=== PATIENT | female | born 1955 | race Caucasian/White ===

== ENCOUNTER 2016-05-20 06:15 | Emergency (ER) | payer OTHER, BC ==
--- NOTE | 2016-05-20 06:27 | EDM.PDOC ---
ED HPI Trauma - General Chief Complaint: Upper Extremity Injury/Pain Stated Complaint: INJURED LEFT SHOULDER Time Seen by Provider: 05/20/16 06:19 - History of Present Illness INITIAL COMMENTS - FREE TEXT/NARRATIVE: 60-year-old female presents emergency room with left shoulder pain. Shortly before arrival the patient was walking into the hospital getting ready to clock in. She got her feet tangled up in the area rugs, and fell forward. She had a backpack over her right shoulder to the front of her. She landed on both outstretched arms and rolled onto her left side hitting her shoulder fairly hard. She has significant pain in the shoulder area and numbness going down her arm. Patient denies any prior injuries to the shoulder. Patient denies any other injuries associated with this fall. Allergies/ADRs: Allergies sulfamethoxazole [From Bactrim] Allergy (Verified 05/20/16 06:31) Hives trimethoprim [From Bactrim] Allergy (Verified 05/20/16 06:31) Hives Home Medications: Ambulatory Orders Hydrocodone/Acetaminophen [[place] 5-325 Tablet] 1 - 2 each PO Q6H PRN #20 tablet 05/20/16 Review of Systems - Review of Systems Review Of Systems: See Below Constitutional: Reports: no symptoms Respiratory: Reports: no symptoms Cardiovascular: Reports: no symptoms GI/Abdominal: Reports: No symptoms Trauma Exam - Physical Exam Exam: See Below Exam Limited By: No limitations General Appearance: Reports: alert, no apparent distress Respiratory Exam: Reports: no respiratory distress, lungs clear, normal breath sounds Cardiovascular: Reports: regular rate, rhythm, no edema, no murmur Extremities: Reports: other (examination of the left upper extremity is severely limited by decreased range of motion and pain at the shoulder. The patient can flex and extend her elbow without difficulty flex and extend her wrist without difficulty, she can move her fingers. She has sensation of tingling and numbness in the extremity this doesn't isolate any specific dermatome however light touch sensation is intact. Vascular status is normal.) Course - Vital Signs Last Recorded V/S: Last Vital Signs Temp 36.5 C 05/20/16 06:15 Pulse 95 05/20/16 06:15 Resp 16 05/20/16 06:15 BP 132/115 H 05/20/16 06:15 Pulse Ox 96 05/20/16 06:15 - Orders/Labs/Meds Orders: Active Orders 24 hr Category Date Time Status Humerus Lt [CR] Stat Exams 05/20/16 06:27 Taken Shoulder Comp Lt [CR] Stat Exams 05/20/16 06:27 Taken Durable Medical Equipment for Discharge [DME for Oth 05/20/16 07:10 Ordered Discharge] [COMM] Stat - Re-Assessments/Exams Free Text/Narrative Re-Assessment/Exam: 05/20/16 07:37 x-ray examination of the shoulder and humerus reveal a nondisplaced humeral head fracture. There is an area of concern on the scapula but there is no clear cortical disruption. The case was discussed with Dr. Deluna who recommends placing the patient in a shoulder immobilizer and he will see her in the office tomorrow morning. If he has any concerns over the scapula he will pursue further images at that point. Departure - Departure Time of Disposition: 07:19 Disposition: Home, Self-Care 01 Clinical Impression: Fracture of humeral head, left, closed Prescriptions: Hydrocodone/Acetaminophen [[place] 5-325 Tablet] 1 - 2 each PO Q6H PRN #20 tablet PRN Reason: Pain Referrals: Mena Mcfarlane PA [Primary Care Provider] - Dale Deluna MD [Physician] - Additional Instructions: Return to emergency room if any questions or problems. Followup with Dr. Deluna tomorrow morning call this morning for an appointment. use ibuprofen as needed for discomfort take with meals. You have been given a prescription for [place] this is a pain medication with hydrocodone. Take one or 2 every 6 hours as needed for pain. Allow 12 hours after using this medication before driving or returning to work. Regular use this medication can cause constipation. Push fluids and use a stool softener if needed. - My Orders Last 24 Hours: My Active Orders 05/20/16 06:27 Humerus Lt [CR] Stat Shoulder Comp Lt [CR] Stat 05/20/16 07:10 Durable Medical Equipment for Discharge [DME for Discharge] [COMM] Stat - Assessment/Plan Last 24 Hours: My Active Orders 05/20/16 06:27 Humerus Lt [CR] Stat Shoulder Comp Lt [CR] Stat 05/20/16 07:10 Durable Medical Equipment for Discharge [DME for Discharge] [COMM] Stat
[2016-05-20 06:31] VITALS: BP 132/115
--- NOTE | 2016-05-20 10:00 | CR ---
Left shoulder: Three views of the left shoulder were obtained. Fracture identified within the base of the greater tuberosity. No additional fracture is appreciated. Acromioclavicular joint appears unremarkable. Impression: 1. Nondisplaced fracture involving the base of the greater tuberosity. Diagnostic code #3
--- NOTE | 2016-05-20 10:01 | CR ---
Left humerus: Two views of the left humerus were obtained. Study correlated to shoulder exam performed on the same day. Comparison: No previous study is available. Findings: Fracture is again noted within the base of the greater tuberosity. No additional fracture or other abnormality is seen within the left humerus. Impression: 1. Proximal humeral fracture within the greater tuberosity. 2. Left humerus exam is otherwise unremarkable. Diagnostic code #3
== END 2016-05-20 07:35 | disposition home or self-care (01) ==
LOC: JD.ED 06:15
DX: S42.292A Other displaced fracture of upper end of left humerus, initial encounter for closed fracture (principal); Z88.1 Allergy status to other antibiotic agents; W01.0XXA Fall on same level from slipping, tripping and stumbling without subsequent striking against object, initial encounter
CPT/HCPCS: 73030-26-LT; 73030-LT; 73060-26-LT; 73060-LT; 99283; 99284

== ENCOUNTER 2017-07-27 09:54 | Day surgery (SDC) | payer BC, OTHER ==
[~2017-07-27 09:54] MED LIST: Lactated Ringers 1,000 ML IV SCH; Lidocaine 1%/Sod Bicarbonate in NS 8.4% 1 ML Syringe IDERM PRN; Sodium Chloride 0.9% 10 ML Syringe FLUSH PRN
--- NOTE | 2017-07-27 10:32 | PCM.PREANE ---
Preanesthetic Assessment - Procedure Proposed Procedure: screening colonoscopy - Anesthesia/Transfusion/Family Hx Anesthesia History: Prior Anesthesia Reaction Type of Anesthesia Reaction: Excessive Nausea/Vomiting Family History of Anesthesia Reaction: No Transfusion History: No Prior Transfusion(s) - Review of Systems General: No Symptoms Pulmonary: No Symptoms Cardiovascular: No Symptoms Gastrointestinal: No Symptoms Neurological: No Symptoms Other: Reports: Sinus Problem (hayfever) - Physical Assessment NPO Status Date: 07/26/17 NPO Status Time: 21:30 Pulse: 83 O2 Sat by Pulse Oximetry: 95 Respiratory Rate: 20 Blood Pressure: 162/98 Temperature: 99.1 F Height: 5 ft 4 in Weight: 87 kg ASA Class: 2 Mental Status: Alert & Oriented x3 Airway Class: Mallampati = 1 Dentition: Reports: Normal Dentition Thyro-Mental Finger Breadths: 3 Mouth Opening Finger Breadths: 3 ROM/Head Extension: Full Lungs: Clear to Auscultation, Normal Respiratory Effort Cardiovascular: Regular Rate, Regular Rhythm - Allergies Allergies/Adverse Reactions: Allergies Allergy/AdvReac Type Severity Reaction Status Date / Time sulfamethoxazole Allergy Hives Verified 07/26/17 16:39 [From Bactrim] trimethoprim [From Bactrim] Allergy Hives Verified 07/26/17 16:39 hydrochlorothiazide AdvReac Muscle Verified 07/27/17 08:10 Aches hydrocodone AdvReac Nausea Verified 07/27/17 08:10 ketorolac [From Toradol] AdvReac Tachycardia Verified 07/27/17 08:10 - Blood Blood Available: No - Acknowledgements Anesthesia Type Planned: MAC Pt an Appropriate Candidate for the Planned Anesthesia: Yes Alternatives and Risks of Anesthesia Discussed w Pt/Guardian: Yes Pt/Guardian Understands and Agrees with Anesthesia Plan: Yes PreAnesthesia Questionnaire HEENT History: Reports: Allergic Rhinitis, Hard of Hearing, Other (See Below) Other HEENT History: ear itching, bilateral hearing loss, has hearing aides, has glasses Cardiovascular History: Reports: High Cholesterol, Hypertension, Other (See Below) Other Cardiovascular History: edema Respiratory History: Reports: Sleep Apnea, Other (See Below) Other Respiratory History: URI, being tested for sleep apnea in near future Gastrointestinal History: Reports: Colon Polyp Genitourinary History: Reports: Other (See Below) Other Genitourinary History: breast nodule, atrohpic vaginitis, pelvic floor repair with mesh 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 left secondary adhesive capsulitis, left hand finger strain, right knee strain Neurological History: Reports: Headaches, Chronic, Other (See Below) Other Neuro History: head injury, head pain, motion sickness, fatigue Psychiatric History: Reports: None Endocrine/Metabolic History: Reports: Osteopenia Other Hematologic History: leukopenia Immunologic History: Reports: None Oncologic (Cancer) History: Reports: None Dermatologic History: Reports: None - Past Surgical History Head Surgeries/Procedures: Reports: None HEENT Surgical History: Reports: None Cardiovascular Surgical History: Reports: None Respiratory Surgical History: Reports: None GI Surgical History: Reports: Colonoscopy Female Surgical History: Reports: None Male Surgical History: Reports: None Musculoskeletal Surgical History: Reports: Arthroscopic Knee Oncologic Surgical History: Reports: None - SUBSTANCE USE Smoking Status *Q: Never Smoker Tobacco Use Within Last Twelve Months: No Second Hand Smoke Exposure: No Days Per Week of Alcohol Use: 0 Recreational Drug Use History: No - HOME MEDS Home Medications: Home Meds Ascorbic Acid [Vitamin C] 500 mg PO DAILY 07/26/17 [History] Aspirin/Acetaminophen/Caffeine [Migraine Formula Caplet] 1 - 2 tab PO Q6H PRN [History] C Hyaluronic Acid 1 dose VAG ASDIRECTED 07/26/17 [History] Calcium Carbonate/Vitamin D3 [Caltrate 600 + D Soft Chew Tab] 1 tab PO DAILY 11/05 [History] Fish Oil/[place]-3 Fatty Acids [Fish Oil 1,000 MG] 1 gm PO DAILY 07/26/17 [History ] Gluc 2KCl/Chondr/Doug Hy/Hy Ac [Glucosamine & Chondroitin Cap] 1 cap PO DAILY [History] Magnesium 30 mg PO DAILY 07/26/17 [History] Multivitamin [Zoo Chews] 1 tab PO DAILY 07/26/17 [History] Prednicarbate 1 dose TOP BID 07/26/17 [History] Rosuvastatin [Crestor] 5 mg PO DAILY 07/26/17 [History] Ubidecarenone [Coq-10] 150 mg PO DAILY 07/26/17 [History] - CURRENT (IN HOUSE) MEDS Current Meds: Current Medications Lactated Ringer's (Ringers, Lactated) 1,000 mls @ 125 mls/hr IV ASDIRECTED JAKI Stop: 07/27/17 23:00 Lidocaine/Sodium Bicarbonate (Buffered Lidocaine 1% In Ns 8.4%) 0.25 ml IDERM ONETIME PRN PRN Reason: Prior to IV Start Stop: 07/27/17 18:00 Sodium Chloride (Saline Flush) 10 ml FLUSH ASDIRECTED PRN PRN Reason: Keep Vein Open Stop: 07/27/17 18:00
[2017-07-27] MEDS ORDERED: Propofol 200 MG/20 ML SDV ONE ×2 (10:48)
[2017-07-27] MEDS ORDERED: Midazolam 1 MG/ML 2 ML SDV ONE (11:00)
[2017-07-27] MEDS ORDERED: Ondansetron 4 MG/2 ML SDV ONE (11:16)
--- NOTE | 2017-07-27 11:33 | PCM.OPNOTE ---
- General Post-Op/Procedure Note Date of Surgery/Procedure: 07/27/17 Operative Procedure(s): Colonoscopy Findings: 1. internal hemorrhoids 2. sigmoid diverticulosis Pre Op Diagnosis: History of colon polyp Post-Op Diagnosis: 1. Internal hemorrhoids. 2. Sigmoid diverticulosis Anesthesia Technique: MAC, Moderate Sedation Primary Surgeon: Omid Leo Pathology: None EBL in mLs: 0 Complications: None Condition: Good Free Text/Narrative:: After adequate IV sedation and analgesia was obtained with monitoring the patient was placed on her left side. Perianal inspection revealed the internal hemorrhoids which were uncomplicated. A lubricated colonoscope was inserted into the rectum and advanced to the cecum without difficulty. The bowel preparation was excellent. The cecum right colon transverse and descending colons were endoscopically normal and had no mass lesions nor inflammatory changes. The sigmoid had a few scattered uncomplicated diverticuli. There were no polyps in this area either. The rectum in the retroflexed view was remarkable for the internal hemorrhoids. Upholstery Cutter photographs were taken for the patient and for the medical record.
--- NOTE | 2017-07-27 11:34 | PCM48HPAN ---
Post Anesthesia Note - EVALUATION WITHIN 48HRS OF ANESTHETIC Vital Signs in Normal Range: Yes Patient Participated in Evaluation: Yes Respiratory Function Stable: Yes Airway Patent: Yes Cardiovascular Function Stable: Yes Hydration Status Stable: Yes Pain Control Satisfactory: Yes Nausea and Vomiting Control Satisfactory: Yes Mental Status Recovered: Yes Pulse Rate: 78 SaO2: 94 Resp Rate: 16 Temperature: 36.5 C Blood Pressure: 131/97
[2017-07-27 13:22] VITALS: BP 150/91
== END 2017-07-27 12:55 | disposition home or self-care (01) ==
LOC: JD.SDS 09:54
PROVIDERS: ATTEND Surgery
DX: K64.8 Other hemorrhoids (principal); K57.30 Diverticulosis of large intestine without perforation or abscess without bleeding; Z86.010 Personal history of colon polyps; Z80.0 Family history of malignant neoplasm of digestive organs; M19.019 Primary osteoarthritis, unspecified shoulder; E78.5 Hyperlipidemia, unspecified; M85.80 Other specified disorders of bone density and structure, unspecified site; G47.30 Sleep apnea, unspecified; Z88.1 Allergy status to other antibiotic agents; Z88.5 Allergy status to narcotic agent; Z88.8 Allergy status to other drugs, medicaments and biological substances; Z79.899 Other long term (current) drug therapy; Z98.890 Other specified postprocedural states
CPT/HCPCS: 45378; J2250; J2405; J7120; J2704

== ENCOUNTER 2017-09-10 07:59 | Emergency (ER) | payer OTHER, BC ==
[2017-09-10 08:22] VITALS: BP 146/96
--- NOTE | 2017-09-10 08:47 | EDM.PDOC ---
ED HPI GENERAL MEDICAL PROBLEM - General Chief Complaint: Laceration Stated Complaint: EMPLOYEE INJURY Time Seen by Provider: 09/10/17 08:19 Source of Information: Reports: Patient History Limitations: Reports: No Limitations - History of Present Illness INITIAL COMMENTS - FREE TEXT/NARRATIVE: The patient presents with a laceration to her left 3rd finger. 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 She thinks it is glass from a cover slide. She feel there is still some glass in the wound. Her tetanus is up to date. She is left handed. Onset: Sudden Duration: Minutes: Location: Reports: Upper Extremity, Left (3rd finger) Quality: Reports: Sharp Severity: Moderate Improves with: Reports: None Worsens with: Reports: None - Related Data Allergies Allergy/AdvReac Type Severity Reaction Status Date / Time sulfamethoxazole Allergy Hives Verified 09/10/17 08:22 [From Bactrim] trimethoprim [From Bactrim] Allergy Hives Verified 09/10/17 08:22 hydrocodone AdvReac Mild Nausea Verified 09/10/17 08:22 hydrochlorothiazide AdvReac Muscle Verified 09/10/17 08:22 Aches ketorolac [From Toradol] AdvReac Tachycardia Verified 09/10/17 08:22 Home Meds: Home Meds Ascorbic Acid [Vitamin C] 500 mg PO DAILY 07/26/17 [History] Aspirin/Acetaminophen/Caffeine [Migraine Formula Caplet] 1 - 2 tab PO Q6H PRN [History] C Hyaluronic Acid 1 dose VAG ASDIRECTED 07/26/17 [History] Calcium Carbonate/Vitamin D3 [Caltrate 600 + D Soft Chew Tab] 1 tab PO DAILY 11/05 [History] Fish Oil/[place]-3 Fatty Acids [Fish Oil 1,000 MG] 1 gm PO DAILY 07/26/17 [History ] Gluc 2KCl/Chondr/Doug Hy/Hy Ac [Glucosamine & Chondroitin Cap] 1 cap PO DAILY [History] Magnesium 30 mg PO DAILY 07/26/17 [History] Multivitamin [Zoo Chews] 1 tab PO DAILY 07/26/17 [History] Prednicarbate 1 dose TOP BID 07/26/17 [History] Rosuvastatin [Crestor] 5 mg PO DAILY 07/26/17 [History] Ubidecarenone [Coq-10] 150 mg PO DAILY 07/26/17 [History] Past Medical History HEENT History: Reports: Allergic Rhinitis, Hard of Hearing, Other (See Below) Other HEENT History: ear itching, bilateral hearing loss, has hearing aides, has glasses Cardiovascular History: Reports: High Cholesterol, Hypertension, Other (See Below) Other Cardiovascular History: edema Respiratory History: Reports: Sleep Apnea, Other (See Below) Other Respiratory History: URI, being tested for sleep apnea in near future Gastrointestinal History: Reports: Colon Polyp Genitourinary History: Reports: Other (See Below) Other Genitourinary History: breast nodule, atrohpic vaginitis, pelvic floor repair with mesh 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 left secondary adhesive capsulitis, left hand finger strain, right knee strain Neurological History: Reports: Headaches, Chronic, Other (See Below) Other Neuro History: head injury, head pain, motion sickness, fatigue Psychiatric History: Reports: None Endocrine/Metabolic History: Reports: Osteopenia Other Hematologic History: leukopenia Immunologic History: Reports: None Oncologic (Cancer) History: Reports: None Dermatologic History: Reports: None - Past Surgical History Head Surgeries/Procedures: Reports: None HEENT Surgical History: Reports: None Cardiovascular Surgical History: Reports: None Respiratory Surgical History: Reports: None GI Surgical History: Reports: Colonoscopy Female Surgical History: Reports: None Musculoskeletal Surgical History: Reports: Arthroscopic Knee Oncologic Surgical History: Reports: None Social & Family History - Tobacco Use Smoking Status *Q: Never Smoker - Caffeine Use Caffeine Use: Reports: None ED ROS GENERAL - Review of Systems Review Of Systems: See Below Constitutional: Reports: No Symptoms HEENT: Reports: No Symptoms Respiratory: Reports: No Symptoms Cardiovascular: Reports: No Symptoms Endocrine: Reports: No Symptoms GI/Abdominal: Reports: No Symptoms : Reports: No Symptoms Musculoskeletal: Reports: Other (Laceration to the left 3rd finger) ED EXAM, SKIN/RASH Exam: See Below Exam Limited By: No Limitations General Appearance: Alert, No Apparent Distress Ears: Normal External Exam Nose: Normal Inspection Head: Atraumatic, Normocephalic Neck: Normal Inspection Respiratory/Chest: No Respiratory Distress Extremities: Other (small laceration to the pad of the left 3rd finger.) Course - Vital Signs Last Recorded V/S: Last Vital Signs Temp 98.2 F 09/10/17 08:16 Pulse 88 09/10/17 08:16 Resp 18 09/10/17 08:16 BP 146/96 H 09/10/17 08:16 Pulse Ox 98 09/10/17 08:16 - Orders/Labs/Meds Orders: Active Orders 24 hr Category Date Time Status Fingers Third Digit Lt F2 [CR] Stat Exams 09/10/17 08:35 Taken Fingers Third Digit Lt F2 [CR] Stat Exams 09/10/17 10:13 Taken Meds: Medications Discontinued Medications Generic Name Dose Route Start Last Admin Trade Name Dustin PRN Reason Stop Dose Admin Lidocaine HCl Confirm 09/10/17 09:42 Xylocaine 1% Administered 09/10/17 09:43 Dose 50 ml .ROUTE .STK-MED ONE - Re-Assessments/Exams Free Text/Narrative Re-Assessment/Exam: 09/10/17 08:46 I got an x-ray to see if I can identify a FB. 09/10/17 11:07 The x-ray does show a FB. I cleaned her finger and attempted to remove the FB. I could not get it out from the laceration. I used 1% lidocaine 3cc and did a finger block to her finger. I had good anaesthesia and I opened up the wound more. I still could not find it. I then had another x-ray done where they marked the laceration. I still could not find it. I then cleaned the wound again and closed it with some adhesive. I will have her follow up with Dr Kay and see if he can help her. Departure - Departure Time of Disposition: 11:10 Disposition: Home, Self-Care 01 Condition: Good Clinical Impression: Foreign body finger - Discharge Information Referrals: Shelli Nagel NP [Primary Care Provider] - Manuel Kay MD [Physician] - 1 Week Forms: ED Department Discharge Additional Instructions: Follow up with Dr Kay. The adhesive will wear off in 10 to 14 days. You can wash your hands like normal after a couple hours. Look for any signs of infection such as redness, swelling, pain or drainage. Please return if you see any of these signs. You may need oral antibiotics. - My Orders Last 24 Hours: My Active Orders 09/10/17 08:35 Fingers Third Digit Lt F2 [CR] Stat 09/10/17 10:13 Fingers Third Digit Lt F2 [CR] Stat - Assessment/Plan Last 24 Hours: My Active Orders 09/10/17 08:35 Fingers Third Digit Lt F2 [CR] Stat 09/10/17 10:13 Fingers Third Digit Lt F2 [CR] Stat
[2017-09-10] MEDS ORDERED: Lidocaine 1% 50 ML MDV ONE (09:42)
[2017-09-10] MEDS ORDERED: Lidocaine 1% 50 ML MDV INJECT STA (11:31)
--- NOTE | 2017-09-12 08:55 | CR ---
Left third finger: Four views of the left third finger were obtained. Comparison: No previous study. Small linear foreign body is identified within the superficial soft tissues of the distal left third finger within the volar aspect. Slight joint space narrowing is noted within the DIP joint. No acute bony abnormality is seen. Impression: 1. Small foreign body as described above. Other incidental finding. Diagnostic code #3
--- NOTE | 2017-09-12 08:55 | CR ---
Left third finger: Three views centered to the left third finger were obtained. Comparison: Previous left third finger study performed earlier on the same day (8:29 AM). Small superficial BB has been placed which is slightly cephalic to previously noted foreign body. No additional finding is seen. Impression: 1. Marking BB as noted above. Diagnostic code #3
== END 2017-09-10 11:29 | disposition home or self-care (01) ==
LOC: JD.ED 07:59 → SUPCPDRO 07:59 → JD.ED 11:29
DX: S61.222A Laceration with foreign body of right middle finger without damage to nail, initial encounter (principal); E78.00 Pure hypercholesterolemia, unspecified; I10 Essential (primary) hypertension; Z88.8 Allergy status to other drugs, medicaments and biological substances; Z88.5 Allergy status to narcotic agent; Z79.899 Other long term (current) drug therapy
CPT/HCPCS: 10120; 64450; 73140-26-F2; 73140-F2; 99283; 99283-25

== ENCOUNTER 2018-04-16 12:34 | Emergency (ER) | payer BC, OTHER ==
[2018-04-16 12:56] VITALS: BP 159/93
--- NOTE | 2018-04-16 13:32 | EDM.PDOC ---
ED HPI GENERAL MEDICAL PROBLEM - General Chief Complaint: General Stated Complaint: FLU SX Time Seen by Provider: 04/16/18 13:01 Source of Information: Reports: Patient, RN Notes Reviewed History Limitations: Reports: No Limitations - History of Present Illness INITIAL COMMENTS - FREE TEXT/NARRATIVE: Patient is a 62 year old female who presents to the ED for the evaluation of flu like symptoms that started yesterday. 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 She notes that she has chills , runny, nose, and other cold like symptoms. She did have the influenza vaccine this year and did take some excedrin for the pain. She feels as if she was run over by a truck - Related Data Allergies Allergy/AdvReac Type Severity Reaction Status Date / Time sulfamethoxazole Allergy Hives Verified 10/16/17 09:31 [From Bactrim] trimethoprim [From Bactrim] Allergy Hives Verified 10/16/17 09:31 hydrocodone AdvReac Mild Nausea Verified 10/16/17 09:31 hydrochlorothiazide AdvReac Muscle Verified 10/16/17 09:31 Aches ketorolac [From Toradol] AdvReac Tachycardia Verified 10/16/17 09:31 Home Meds: Home Meds Ascorbic Acid [Vitamin C] 500 mg PO DAILY 07/26/17 [History] Aspirin/Acetaminophen/Caffeine [Migraine Formula Caplet] 1 - 2 tab PO Q6H PRN [History] C Hyaluronic Acid 1 dose VAG ASDIRECTED PRN 07/26/17 [History] Calcium Carbonate/Vitamin D3 [Caltrate 600 + D Soft Chew Tab] 1 tab PO BID 07/26 [History] Gluc 2KCl/Chondr/Doug Hy/Hy Ac [Glucosamine & Chondroitin Cap] 2 cap PO BID 11/05 [History] Magnesium 30 mg PO DAILY 07/26/17 [History] Multivitamin [Zoo Chews] 1 tab PO DAILY 07/26/17 [History] Prednicarbate 1 dose TOP BID PRN 07/26/17 [History] Rosuvastatin [Crestor] 5 mg PO DAILY 07/26/17 [History] Ubidecarenone [Coq-10] 150 mg PO DAILY 07/26/17 [History] Oseltamivir [Tamiflu] 75 mg PO BID #9 cap 04/16/18 [Rx] Past Medical History HEENT History: Reports: Allergic Rhinitis, Hard of Hearing, Impaired Vision Other HEENT History: ear itching, bilateral hearing loss, has hearing aides, has glasses Cardiovascular History: Reports: High Cholesterol, Hypertension Other Cardiovascular History: edema Respiratory History: Reports: Sleep Apnea Other Respiratory History: URI, being tested for sleep apnea in near future Gastrointestinal History: Reports: Colon Polyp Genitourinary History: Reports: Other (See Below) Other Genitourinary History: breast nodule, atrohpic vaginitis, pelvic floor repair with mesh WIRE THREADER History: Reports: None Musculoskeletal History: Reports: Arthritis, Fracture Other Musculoskeletal History: ac joint arthritis, left humberous fracture, joint stiffness, left thigh pain. left secondary adhesive capsulitis, left hand finger strain, right knee strain Neurological History: Reports: Headaches, Chronic Other Neuro History: head injury, head pain, motion sickness, fatigue Psychiatric History: Reports: None Endocrine/Metabolic History: Reports: Osteopenia Other Hematologic History: leukopenia Immunologic History: Reports: None Oncologic (Cancer) History: Reports: None Dermatologic History: Reports: None - Past Surgical History Head Surgeries/Procedures: Reports: None GI Surgical History: Reports: Colonoscopy Female Surgical History: Reports: None Musculoskeletal Surgical History: Reports: Arthroscopic Knee Oncologic Surgical History: Reports: None Social & Family History - Family History Family Medical History: Noncontributory - Tobacco Use Smoking Status *Q: Never Smoker - Caffeine Use Caffeine Use: Reports: None ED ROS GENERAL - Review of Systems Review Of Systems: See Below Constitutional: Reports: Chills, Malaise HEENT: Reports: Rhinitis, Throat Pain. Denies: Ear Pain Respiratory: Reports: Cough. Denies: Shortness of Breath, Wheezing, Sputum Cardiovascular: Reports: No Symptoms Endocrine: Reports: No Symptoms GI/Abdominal: Reports: No Symptoms : Reports: No Symptoms Musculoskeletal: Reports: Back Pain Skin: Reports: No Symptoms Neurological: Reports: No Symptoms Psychiatric: Reports: No Symptoms Hematologic/Lymphatic: Reports: No Symptoms Immunologic: Reports: No Symptoms ED EXAM, GENERAL - Physical Exam Exam: See Below Exam Limited By: No Limitations General Appearance: Alert, WD/WN, Mild Distress Eye Exam: Bilateral Eye: EOMI, Normal Inspection, PERRL Ears: Normal External Exam, Normal Canal, Hearing Grossly Normal, Normal TMs Nose: Normal Inspection, Normal Mucosa Throat/Mouth: Normal Inspection, Normal Oropharynx, No Airway Compromise Head: Atraumatic, Normocephalic Neck: Normal Inspection, Supple, Non-Tender, Full Range of Motion Respiratory/Chest: No Respiratory Distress, Lungs Clear, Normal Breath Sounds, No Accessory Muscle Use, Chest Non-Tender Cardiovascular: Normal Peripheral Pulses, Regular Rate, Rhythm, No Edema, No Murmur GI/Abdominal: Normal Bowel Sounds, Soft, Non-Tender, No Distention Extremities: Normal Inspection, Normal Capillary Refill Neurological: Alert, Oriented, Normal Cognition, No Motor/Sensory Deficits Psychiatric: Normal Affect, Normal Mood Skin Exam: Warm, Dry, Intact, Normal Color, No Rash Course - Vital Signs Last Recorded V/S: Last Vital Signs Temp 100 F 04/16/18 12:51 Pulse 112 H 04/16/18 12:51 Resp 22 H 04/16/18 12:51 BP 159/93 H 04/16/18 12:51 Pulse Ox 95 04/16/18 12:51 - Orders/Labs/Meds Meds: Medications Discontinued Medications Generic Name Dose Route Start Last Admin Trade Name Dustin PRN Reason Stop Dose Admin Oseltamivir Phosphate 75 mg 04/16/18 14:09 Tamiflu PO 04/16/18 14:10 ONETIME ONE - Re-Assessments/Exams Free Text/Narrative Re-Assessment/Exam: 04/16/18 14:23 Pt presents to the ED for the evaluation of flu like symptoms. Influenza swab was positive for influenza A. Have ordered 75mg tamiflu. Will provide script for this, and recommend regular OTC viral cold medications in conjunction with the tamiflu. Departure - Departure Time of Disposition: 14:28 Disposition: Home, Self-Care 01 Condition: Fair Clinical Impression: Influenza A - Discharge Information *PRESCRIPTION DRUG MONITORING PROGRAM REVIEWED*: No *COPY OF PRESCRIPTION DRUG MONITORING REPORT IN PATIENT ANETA: No Instructions: Influenza, Adult, [id number] Referrals: Shelli Nagel, RETAIL EVENT AND SALES ASSISTANT [Primary Care Provider] - Forms: ED Department Discharge Additional Instructions: You have been evaluated in the ED for flu like symptoms. You have tested positive for influenza A. Please take the Tamiflu 75mg BID for 5 days or until gone. This was sent to [facility]. You may take general OTC cold medications, coricidin HBP might be a good choice if your have BP issues. Please try to limit contact with public until you are 24 hours fever free. Otherwise wear a mask. Please return to ED if your symptoms should change or worsen.
[2018-04-16] MEDS ORDERED: Oseltamivir 75 MG Cap PO ONE (14:09)
== END 2018-04-16 14:48 | disposition home or self-care (01) ==
LOC: JD.ED 12:34
DX: J10.1 Influenza due to other identified influenza virus with other respiratory manifestations (principal); I10 Essential (primary) hypertension; Z88.6 Allergy status to analgesic agent; Z88.2 Allergy status to sulfonamides; Z88.8 Allergy status to other drugs, medicaments and biological substances; Z79.899 Other long term (current) drug therapy; Z79.82 Long term (current) use of aspirin
CPT/HCPCS: 87804; 99283; A9270

== ENCOUNTER 2018-09-09 13:37 | Emergency (ER) | payer BC, OTHER ==
[2018-09-09 13:54] VITALS: BP 156/89
--- NOTE | 2018-09-09 14:06 | EDM.PDOC ---
ED HPI GENERAL MEDICAL PROBLEM - General Chief Complaint: Genitourinary Problem Stated Complaint: UTI Time Seen by Provider: 09/09/18 13:50 Source of Information: Reports: Patient, RN Notes Reviewed History Limitations: Reports: No Limitations - History of Present Illness INITIAL COMMENTS - FREE TEXT/NARRATIVE: Patient is a 62-year-old female who presents to the ED for the evaluation of a possible UTI. The patient notes she has had increased dysuria, frequency, urgency starting this morning. She notes that she is been going to the bathroom roughly every 5-10 minutes. She did notice some small blood clots with the urination starting 30-45 minutes ago. The patient notes that she's had a prior UTI many many years ago, she did take Bactrim at that time and developed a rash, and believes that this was changed to cephalexin and that seemed to clear up the UTI. Vaginal Pain Score (Numeric/FACES): 4 - Related Data Allergies Allergy/AdvReac Type Severity Reaction Status Date / Time sulfamethoxazole Allergy Hives Verified 09/09/18 13:54 [From Bactrim] trimethoprim [From Bactrim] Allergy Hives Verified 09/09/18 13:54 hydrocodone AdvReac Mild Nausea Verified 09/09/18 13:54 hydrochlorothiazide AdvReac Muscle Verified 09/09/18 13:54 Aches ketorolac [From Toradol] AdvReac Tachycardia Verified 09/09/18 13:54 Home Meds: Home Meds Ascorbic Acid [Vitamin C] 500 mg PO DAILY 07/26/17 [History] Aspirin/Acetaminophen/Caffeine [Migraine Formula Caplet] 1 - 2 tab PO Q6H PRN [History] C Hyaluronic Acid 1 dose VAG ASDIRECTED PRN 07/26/17 [History] Calcium Carbonate/Vitamin D3 [Caltrate 600 + D Soft Chew Tab] 1 tab PO BID 07/26 [History] Gluc 2KCl/Chondr/Doug Hy/Hy Ac [Glucosamine & Chondroitin Cap] 2 cap PO BID 11/05 [History] Magnesium 30 mg PO DAILY 07/26/17 [History] Multivitamin [Zoo Chews] 1 tab PO DAILY 07/26/17 [History] Prednicarbate 1 dose TOP BID PRN 07/26/17 [History] Rosuvastatin [Crestor] 5 mg PO DAILY 07/26/17 [History] Ubidecarenone [Coq-10] 150 mg PO DAILY 07/26/17 [History] cephALEXin [Cephalexin] 500 mg PO TID #14 tablet 09/09/18 [Rx] Past Medical History HEENT History: Reports: Allergic Rhinitis, Hard of Hearing, Impaired Vision Other HEENT History: ear itching, bilateral hearing loss, has hearing aides, has glasses Cardiovascular History: Reports: High Cholesterol, Hypertension Other Cardiovascular History: edema Respiratory History: Reports: Sleep Apnea Other Respiratory History: URI, being tested for sleep apnea in near future Gastrointestinal History: Reports: Colon Polyp Genitourinary History: Reports: Other (See Below) Other Genitourinary History: breast nodule, atrohpic vaginitis, pelvic floor repair with mesh KINDERGARTEN TEACHER History: Reports: None Musculoskeletal History: Reports: Arthritis, Fracture Other Musculoskeletal History: ac joint arthritis, left humberous fracture, joint stiffness, left thigh pain. left secondary adhesive capsulitis, left hand finger strain, right knee strain Neurological History: Reports: Headaches, Chronic Other Neuro History: head injury, head pain, motion sickness, fatigue Psychiatric History: Reports: None Endocrine/Metabolic History: Reports: Osteopenia Other Hematologic History: leukopenia Immunologic History: Reports: None Oncologic (Cancer) History: Reports: None Dermatologic History: Reports: None - Past Surgical History Head Surgeries/Procedures: Reports: None GI Surgical History: Reports: Colonoscopy Female Surgical History: Reports: None Musculoskeletal Surgical History: Reports: Arthroscopic Knee Oncologic Surgical History: Reports: None Social & Family History - Family History Family Medical History: Noncontributory - Tobacco Use Smoking Status *Q: Never Smoker Second Hand Smoke Exposure: No - Caffeine Use Caffeine Use: Reports: None - Recreational Drug Use Recreational Drug Use: No ED ROS GENERAL - Review of Systems Review Of Systems: See Below Constitutional: Denies: Fever, Chills HEENT: Reports: No Symptoms Respiratory: Reports: No Symptoms Cardiovascular: Reports: No Symptoms Endocrine: Reports: No Symptoms GI/Abdominal: Reports: No Symptoms : Reports: Dysuria, Frequency, Hematuria, Urgency Musculoskeletal: Reports: No Symptoms Skin: Reports: No Symptoms Neurological: Reports: No Symptoms Psychiatric: Reports: No Symptoms Hematologic/Lymphatic: Reports: No Symptoms ED EXAM, RENAL/ - Physical Exam Exam: See Below Exam Limited By: No Limitations General Appearance: Alert, WD/WN, No Apparent Distress Respiratory/Chest: No Respiratory Distress, Lungs Clear, Normal Breath Sounds, No Accessory Muscle Use, Chest Non-Tender Cardiovascular: Normal Peripheral Pulses, Regular Rate, Rhythm, No Murmur GI/Abdominal: Normal Bowel Sounds, Soft, No Distention, No Mass, Tender ( suprapubic) Neurological: Alert, Oriented, Normal Cognition, No Motor/Sensory Deficits Psychiatric: Normal Affect, Normal Mood Skin Exam: Warm, Dry, Intact, Normal Color, No Rash Course - Vital Signs Last Recorded V/S: Last Vital Signs Temp 97.6 F 09/09/18 13:50 Pulse 81 09/09/18 13:50 Resp 18 09/09/18 13:50 BP 156/89 H 09/09/18 13:50 Pulse Ox 100 09/09/18 13:50 - Orders/Labs/Meds Orders: Active Orders 24 hr Category Date Time Status CULTURE URINE [RM] Routine Lab 09/09/18 13:30 Received Labs: Laboratory Tests 09/09/18 Range/Units 13:30 Urine Color Yellow (Yellow) Urine Appearance Clear (Clear) Urine pH 6.5 (5.0-8.0) Ur Specific [place] 1.015 (1.005-1.030) Urine Protein 1+ H (Negative) Urine Glucose (UA) Negative (Negative) Urine Ketones Negative (Negative) Urine Occult Blood 3+ H (Negative) Urine Nitrite Positive H (Negative) Urine Bilirubin Negative (Negative) Urine Urobilinogen 0.2 (0.2-1.0) Ur Leukocyte Esterase 2+ H (Negative) Urine RBC 50-75 H (0-5) /hpf Urine WBC 20-30 H (0-5) /hpf Urine WBC Clumps Few (NOT SEEN) /hpf Ur Epithelial Cells 0-5 (0-5) /hpf Ur Renal Epithelial Cell 0-5 (0-5) /hpf Urine Bacteria Few (FEW) /hpf Urine Mucus Few (FEW) /hpf Meds: Medications Discontinued Medications Generic Name Dose Route Start Last Admin Trade Name Freq PRN Reason Stop Dose Admin Cephalexin 500 mg 09/09/18 14:26 09/09/18 14:39 Keflex PO 09/09/18 14:27 500 mg ONETIME ONE Administration - Re-Assessments/Exams Free Text/Narrative Re-Assessment/Exam: 09/09/18 14:04 Patient presents to the ED for evaluation of a possible UTI. 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 A UA was ordered, it is likely that she does have a UTI at this time due to her symptoms and presentation. I will send her a prescription for antibiotics to the [place] [facility] located in the [facility]. She' ll pick this up after she is done with work. Departure - Departure Time of Disposition: 14:29 Disposition: Home, Self-Care 01 Condition: Fair Clinical Impression: UTI (urinary tract infection) Qualifiers: Urinary tract infection type: acute cystitis Hematuria presence: with hematuria Qualified Code(s): N30.01 - Acute cystitis with hematuria - Discharge Information *PRESCRIPTION DRUG MONITORING PROGRAM REVIEWED*: No *COPY OF PRESCRIPTION DRUG MONITORING REPORT IN PATIENT ANETA: No Prescriptions: cephALEXin [Cephalexin] 500 mg PO TID #14 tablet Instructions: Urinary Tract Infection, Adult, [id number] Referrals: Shelli Nagel AUTOMOTIVE MECHANICAL ENGINEER [Primary Care Provider] - Forms: ED Department Discharge Additional Instructions: You have been evaluated in the ED today for your UTI like symptoms. Your urinalysis was positive for UTI at this time, you have been given one dose of antibiotic in the ER, and have been provided with a prescription for continuing antibiotics, cephalexin 500 mg 3 times a day for the next 5 days. This is been electronically sent to the [facility] located in the [facility] [place]. Your urinalysis will be sent for culture, You will be notified if you should need a change in your antibiotics. You may take the first day's full course today yet. You may take the second dose around suppertime, and the third dose before bedtime. Please increase your fluid intake as this will also help the infection past. You may use Azo for urinary pain relief, however this will turn your urine orange. Please return to this ER if her symptoms should change or worsen. - My Orders Last 24 Hours: My Active Orders 09/09/18 13:30 CULTURE URINE [RM] Routine - Assessment/Plan Last 24 Hours: My Active Orders 09/09/18 13:30 CULTURE URINE [RM] Routine
[2018-09-09] MEDS ORDERED: Cephalexin 500 MG Cap PO ONE (14:26)
== END 2018-09-09 14:41 | disposition home or self-care (01) ==
LOC: JD.ED 13:37
DX: N30.01 Acute cystitis with hematuria (principal); I10 Essential (primary) hypertension; M19.90 Unspecified osteoarthritis, unspecified site; Z79.82 Long term (current) use of aspirin; Z79.899 Other long term (current) drug therapy; Z88.6 Allergy status to analgesic agent; Z88.2 Allergy status to sulfonamides; Z88.8 Allergy status to other drugs, medicaments and biological substances
CPT/HCPCS: 81001; 87086; 99283; A9270; 87088; 87186

== ENCOUNTER 2019-07-10 07:07 | Day surgery (SDC) | payer BC, MEDICARE ==
[~2019-07-10 07:07] MED LIST changes: -Lactated Ringers 1,000 ML IV SCH; +Scopolamine 1.5 MG Transdermal Patch TRDERM SCH
[2019-07-10] MEDS ORDERED: Bupivacaine 0.5%/EPINEPHrine 1:200,000 50 ML MDV ONE (07:15)
[2019-07-10] MEDS ORDERED: Midazolam 1 MG/ML 2 ML SDV ONE ×2 (07:26→08:28)
[2019-07-10] MEDS ORDERED: fentaNYL 250 MCG/5 ML SDV ONE (07:26)
[2019-07-10] MEDS ORDERED: Propofol 200 MG/20 ML SDV ONE ×2 (07:26→08:11)
[2019-07-10] MEDS ORDERED: Lidocaine 1% 4 ML ONE (07:30)
[2019-07-10] MEDS: Lactated Ringers 1,000 ML IV SCH ×2 (07:35→10:38)
--- NOTE | 2019-07-10 08:03 | PCM.PREANE ---
Preanesthetic Assessment - Procedure Proposed Procedure: Laparoscopic umbilical hernia repair - Anesthesia/Transfusion/Family Hx Anesthesia History: Prior Anesthesia Reaction Type of Anesthesia Reaction: Excessive Nausea/Vomiting Transfusion History: No Prior Transfusion(s) - Review of Systems General: No Symptoms Pulmonary: No Symptoms Cardiovascular: No Symptoms Gastrointestinal: No Symptoms Neurological: No Symptoms Other: Reports: None - Physical Assessment NPO Status Date: 07/09/19 NPO Status Time: 23:00 Vital Signs: Last Vital Signs Temp 98.6 F 07/10/19 07:12 Pulse 77 07/10/19 07:12 Resp 16 07/10/19 07:12 BP 142/85 H 07/10/19 07:12 Pulse Ox 94 L 07/10/19 07:12 Height: 1.63 m Weight: 89 kg Airway Class: Mallampati = 3 Dentition: Reports: Normal Dentition, Harvard(s) Thyro-Mental Finger Breadths: 3 Mouth Opening Finger Breadths: 3 ROM/Head Extension: Full Lungs: Clear to Auscultation, Normal Respiratory Effort Cardiovascular: Regular Rate, Regular Rhythm - Imaging/EKG Impressions: SR no ischemic changes on EKG - Allergies Allergies/Adverse Reactions: Allergies Allergy/AdvReac Type Severity Reaction Status Date / Time sulfamethoxazole Allergy Hives Verified 07/09/19 15:18 [From Bactrim] trimethoprim [From Bactrim] Allergy Hives Verified 07/09/19 15:18 hydrocodone AdvReac Mild Nausea Verified 07/09/19 15:18 hydrochlorothiazide AdvReac Muscle Verified 07/09/19 15:18 Aches ketorolac [From Toradol] AdvReac Tachycardia Verified 07/09/19 15:18 - Acknowledgements Anesthesia Type Planned: General Anesthesia Pt an Appropriate Candidate for the Planned Anesthesia: Yes Alternatives and Risks of Anesthesia Discussed w Pt/Guardian: Yes Pt/Guardian Understands and Agrees with Anesthesia Plan: Yes PreAnesthesia Questionnaire HEENT History: Reports: Allergic Rhinitis, Hard of Hearing, Impaired Vision Other HEENT History: ear itching, bilateral hearing loss, has hearing aides, has glasses Cardiovascular History: Reports: High Cholesterol, Hypertension Other Cardiovascular History: edema Respiratory History: Reports: Sleep Apnea Other Respiratory History: URI, being tested for sleep apnea in near future Gastrointestinal History: Reports: Colon Polyp Genitourinary History: Reports: Other (See Below) Other Genitourinary History: breast nodule, atrohpic vaginitis, pelvic floor repair with mesh EMPLOYMENT ASSISTANT History: Reports: None Musculoskeletal History: Reports: Arthritis, Fracture Other Musculoskeletal History: ac joint arthritis, left humberous fracture, joint stiffness, left thigh pain. left secondary adhesive capsulitis, left hand finger strain, right knee strain Neurological History: Reports: Headaches, Chronic Other Neuro History: head injury, head pain, motion sickness, fatigue Psychiatric History: Reports: None Endocrine/Metabolic History: Reports: Osteopenia Other Hematologic History: leukopenia Immunologic History: Reports: None Oncologic (Cancer) History: Reports: None Dermatologic History: Reports: None - Past Surgical History Head Surgeries/Procedures: Reports: None HEENT Surgical History: Reports: None Cardiovascular Surgical History: Reports: None Respiratory Surgical History: Reports: None GI Surgical History: Reports: Colonoscopy Female Surgical History: Reports: None Male Surgical History: Reports: None Musculoskeletal Surgical History: Reports: Arthroscopic Knee Oncologic Surgical History: Reports: None - SUBSTANCE USE Smoking Status *Q: Never Smoker Recreational Drug Use History: No - HOME MEDS Home Medications: Home Meds Ascorbic Acid [Vitamin C] 500 mg PO DAILY 07/26/17 [History] Aspirin/Acetaminophen/Caffeine [Migraine Formula Caplet] 1 - 2 tab PO Q6H PRN [History] Calcium Carbonate/Vitamin D3 [Caltrate 600 + D Soft Chew Tab] 1 tab PO BID 07/26 [History] Glucosam/Chondr/Collagn/Hyalur [Glucosamine & Chondroitin Cap] 2 cap PO BID 11/05 [History] Magnesium 30 mg PO DAILY 07/26/17 [History] Multivitamin [Zoo Chews] 1 tab PO DAILY 07/26/17 [History] Prednicarbate 1 dose TOP BID PRN 07/26/17 [History] Rosuvastatin [Crestor] 5 mg PO DAILY 07/26/17 [History] Ubidecarenone [Coq-10] 100 mg PO DAILY 07/26/17 [History] Ascorbate Calcium [Vitamin C] 500 mg PO DAILY 07/09/19 [History] Furosemide 20 mg PO DAILY 07/09/19 [History] Scopolamine [Transderm-Scop] 1 patch TOP Q72H PRN 07/09/19 [History] Triamcinolone Acetonide [Triamcinolone Acetonide 0.1% Crm] 1 dose TOP BID PRN [History] Vitamin E (Dl,Tocopheryl Acet) [Vitamin E] 1,000 unit PO DAILY 07/09/19 [History ] - CURRENT (IN HOUSE) MEDS Current Meds: Current Medications Lactated Ringer's (Ringers, Lactated) 1,000 mls @ 125 mls/hr IV ASDIRECTED JAKI Stop: 07/10/19 23:00 Last Admin: 07/10/19 07:35 Dose: 125 mls/hr Lidocaine/Sodium Bicarbonate (Buffered Lidocaine 1% In Ns 8.4%) 0.25 ml IDERM ONETIME PRN PRN Reason: Prior to IV Start Stop: 07/10/19 18:00 Last Admin: 07/10/19 07:34 Dose: 0.25 ml Scopolamine (Transderm-Scop) 0 mg TRDERM ONETIME JAKI Stop: 07/10/19 18:00 Last Admin: 07/10/19 07:39 Dose: 1.5 mg Sodium Chloride (Saline Flush) 10 ml FLUSH ASDIRECTED PRN PRN Reason: Keep Vein Open Stop: 07/10/19 18:00 Discontinued Medications Bupivacaine HCl/Epinephrine Bitart (Marcaine 0.5%/Epinephrine 1:200,000) Confirm Administered Dose 50 ml .ROUTE .STK-MED ONE Stop: 07/10/19 07:16 Fentanyl (Sublimaze) Confirm Administered Dose 250 mcg .ROUTE .STK-MED ONE Stop: 07/10/19 07:27 Lidocaine HCl (Xylocaine-Mpf 1%) Confirm Administered Dose 4 mls @ as directed .ROUTE .STK-MED ONE Stop: 07/10/19 07:31 Midazolam HCl (Versed 1 Mg/Ml) Confirm Administered Dose 2 mg .ROUTE .STK-MED ONE Stop: 07/10/19 07:27 Propofol (Diprivan 20 Ml) Confirm Administered Dose 200 mg .ROUTE .STK-MED ONE Stop: 07/10/19 07:27 Vecuronium [place] (Vecuronium) Confirm Administered Dose 10 mg .ROUTE .STK-MED ONE Stop: 07/10/19 07:28
[2019-07-10] MEDS ORDERED: ceFAZolin 1 GM Vial ONE (08:06)
[2019-07-10] MEDS ORDERED: Succinylcholine/Sod PF 100 MG/5 ML SYRINGE IV ONE (08:07)
[2019-07-10] MEDS ORDERED: Lactated Ringers 1,000 ML ONE (08:20)
[2019-07-10] MEDS ORDERED: Dexamethasone 4 MG/ML 5 ML MDV ONE (08:35)
[2019-07-10] MEDS ORDERED: Ondansetron 4 MG/2 ML SDV ONE (08:43)
[2019-07-10] MEDS ORDERED: fentaNYL 100 MCG/2 ML SDV IVPUSH PRN (09:15)
--- NOTE | 2019-07-10 09:16 | PCM.PRNOTE ---
- Free Text/Narrative Note: Date: 07/10/2019 Operation: diagnostic laparoscopy, primary repair of reducible umbilical hernia Surgeon: Marcial Polanco MD Indication: pain at palpable umbilical hernia site as well as at right side along semilunar line, with abdominal ultrasound showing fascial defect near the umbilicus Findings: No other hernias noted aside from small reducible umbilical hernia Detailed Report: The patient was taken the operating room and placed in supine position. Timeout was performed, and general endotracheal anesthesia induced. The abdomen was prepped and draped in usual sterile fashion. Local anesthetic was injected at the left midclavicular line at the costal margin, and a small stab incision was made to permit passage of the Veress needle into the peritoneal cavity. This was done safely, and the peritoneal cavity was insufflated with CO2 to 15 mmHg. A needle and syringe was used to aspirate air at the site of Veress needle insertion, and the Veress needle was removed. A 5 mm bladed trocar was inserted at the same site, and a 5 mm 30 degree laparoscope was inserted into the abdomen. Abdominal contents appeared grossly normal, and the anterior abdominal wall was carefully inspected for hernias. There was a small reduced umbilical hernia, approximately 1 cm in diameter. No fascial defects were appreciated along either semilunar line. No inguinal hernias were appreciated. At this time, the laparoscope was removed from the abdomen, and a 3 cm infraumbilical curvilinear incision was made with a knife. Dissection was performed around the umbilical stalk circumferentially. A hemostat clamp was placed across the umbilical stalk. The fascia around the umbilicus was exposed. The umbilical stalk was divided superficial to the clamp, and a small amount of fat within the hernia sac was removed. #1 PDS suture was used to close the fascial defect primarily. The laparoscope was then reinserted into the abdomen, and repair was inspected from within. There appeared to be good closure of the fascial defect. At this time a transversus abdominis plane local anesthetic block was applied bilaterally with 0.5% Marcaine (10 cc total) . The scope was withdrawn, and pneumoperitoneum was released. The 5 mm port was withdrawn. A single #1 PDS suture was used to tack down the umbilicus to the underlying fascia. Skin incisions were closed with absorbable suture and dressed with Dermabond. Patient tolerated the procedure well, no complications. Marcial Polanco MD General Surgery
--- NOTE | 2019-07-10 09:31 | PCM.POSTAN ---
POST ANESTHESIA ASSESSMENT - MENTAL STATUS Mental Status: Somnolent - VITAL SIGNS Vital Signs: Last Vital Signs Temp 98.3 F 07/10/19 09:16 Pulse 104 H 07/10/19 09:16 Resp 22 H 07/10/19 09:16 BP 146/84 H 07/10/19 09:16 Pulse Ox 98 07/10/19 09:16 - RESPIRATORY Respiratory Status: Respiratory Rate WNL, Airway Patent, O2 Saturation Stable, Supplemental Oxygen - CARDIOVASCULAR CV Status: Blood Pressure Stable, Elevated Pulse Rate - GASTROINTESTINAL GI Status: No Symptoms - PAIN Pain Score: 0 - POST OP HYDRATION Hydration Status: Adequate & Stable
[2019-07-10] MEDS ORDERED: oxyCODONE 5 MG Tab PO PRN (10:44)
[2019-07-10 13:46] VITALS: BP 141/97; PULSE 94
--- NOTE | 2019-07-10 13:59 | PCM48HPAN ---
Post Anesthesia Note - EVALUATION WITHIN 48HRS OF ANESTHETIC Vital Signs in Normal Range: Yes Patient Participated in Evaluation: Yes Respiratory Function Stable: Yes Airway Patent: Yes Cardiovascular Function Stable: Yes Hydration Status Stable: Yes Pain Control Satisfactory: Yes Nausea and Vomiting Control Satisfactory: Yes Mental Status Recovered: Yes Vital Signs: Last Vital Signs Temp 98.4 F 07/10/19 12:30 Pulse 94 07/10/19 13:00 Resp 16 07/10/19 13:00 BP 141/97 H 07/10/19 13:00 Pulse Ox 94 L 07/10/19 13:00 - COMMENTS/OBSERVATIONS Free Text/Narrative:: Patient is being discharged home.
== END 2019-07-10 13:30 | disposition home or self-care (01) ==
LOC: JD.SDS 07:07
PROVIDERS: ATTEND Surgery
DX: K42.9 Umbilical hernia without obstruction or gangrene (principal); E78.5 Hyperlipidemia, unspecified; Z88.8 Allergy status to other drugs, medicaments and biological substances; Z88.5 Allergy status to narcotic agent; Z88.1 Allergy status to other antibiotic agents; Z79.899 Other long term (current) drug therapy
CPT/HCPCS: 49652; 93005; A9270; J0330; J0690; J1100; J2001; J2250; J2405; J2704; J2710; J3010; J3490; J7120; 00840

== ENCOUNTER 2022-01-19 07:30 | Emergency (ER) | payer MEDICARE, OTHER ==
[2022-01-19 08:16] VITALS: BP 190/96; PULSE 88
[2022-01-19] MEDS ORDERED: Nitrofurantoin Monohydrate/Macrocrystalline 100 MG Cap PO ONE (11:38)
[2022-01-19] MEDS ORDERED: Ibuprofen 600 MG Tab PO ONE (11:38)
[2022-01-19] MEDS ORDERED: Phenazopyridine 95 MG Tab PO SCH (13:00)
== END 2022-01-19 13:16 | disposition home or self-care (01) ==
LOC: JD.ED 07:30
DX: N39.0 Urinary tract infection, site not specified (principal); E78.00 Pure hypercholesterolemia, unspecified; I10 Essential (primary) hypertension; Z88.2 Allergy status to sulfonamides; Z88.5 Allergy status to narcotic agent; Z88.1 Allergy status to other antibiotic agents; Z79.899 Other long term (current) drug therapy; Z79.84 Long term (current) use of oral hypoglycemic drugs
CPT/HCPCS: 81001; 87086; 87088; 87186; 99283; A9270

== ENCOUNTER 2022-06-15 11:45 | Emergency (ER) | payer MEDICARE, OTHER ==
[2022-06-15 12:04] VITALS: BP 141/88; PULSE 87
[2022-06-15] MEDS ORDERED: Sodium Chloride 0.9% 10 ML Syringe FLUSH PRN (12:18)
[2022-06-15] MEDS ORDERED: Sodium Chloride 0.9% 10 ML Syringe FLUSH ONE (13:07)
[2022-06-15] MEDS ORDERED: Iopamidol 612 MG/ML 100 ML Bottle IVPUSH ONE (13:07)
== END 2022-06-15 14:25 | disposition home or self-care (01) ==
LOC: JD.ED 11:45
DX: K57.32 Diverticulitis of large intestine without perforation or abscess without bleeding (principal); E78.00 Pure hypercholesterolemia, unspecified; I10 Essential (primary) hypertension; M19.90 Unspecified osteoarthritis, unspecified site; Z88.2 Allergy status to sulfonamides; Z88.1 Allergy status to other antibiotic agents; Z88.5 Allergy status to narcotic agent; Z79.82 Long term (current) use of aspirin; Z79.899 Other long term (current) drug therapy
CPT/HCPCS: 36415; 74177; 80053; 81001; 83690; 83735; 85025; 86140; 93971; 99284; J3490; Q9967

== ENCOUNTER 2022-07-04 10:27 | Emergency (ER) | payer MEDICARE, OTHER ==
[2022-07-04 10:50] VITALS: BP 143/77; PULSE 94
== END 2022-07-04 12:19 | disposition home or self-care (01) ==
LOC: JD.ED 10:27
DX: N30.01 Acute cystitis with hematuria (principal); E78.00 Pure hypercholesterolemia, unspecified; I10 Essential (primary) hypertension; M19.90 Unspecified osteoarthritis, unspecified site; Z88.2 Allergy status to sulfonamides; Z88.5 Allergy status to narcotic agent; Z88.8 Allergy status to other drugs, medicaments and biological substances; Z79.82 Long term (current) use of aspirin; Z79.899 Other long term (current) drug therapy
CPT/HCPCS: 81001; 87086; 99283